=== PATIENT | female | born 1985 | race Caucasian/White ===

== ENCOUNTER 2018-02-08 23:55 | Emergency (ER) | payer MEDICARE, MEDICAID ==
[~2018-02-08] VITALS: Ht 167.6 cm; Wt 63.5 kg
--- NOTE | 2018-02-09 00:11 | NUR ---
PT BIB [place] WITH A C/[employer]. PT CAME FROM [place]. PT IS AA&O X4 BUT DOESN'T LIKE TO TALK. PT NODS TO YES AND NO QUESTIONS. PT TRIAGED AT BED #13 AND CONNECTED TO THE MONITOR/ CONTINUOUS PULSE OX. PT IS HYPOTENSIVE 90/55. PT HAS 20G IV LAC. 18G RAC IS NOT WORKING, 18G RAC IV removed. Catheter intact and site benign. Pressure and 4x4 applied to site. No bleeding noted. RESP EVEN AND UNLABORED.
[2018-02-09 00:18] LABS: BASOPHILS # (AUTO) 0.1 /CMM (0.0-0.2); BASOPHILS % (AUTO) 0.9 % (0.0-2.0); EOSINOPHILS % (AUTO) 3.6 % (0.0-6.0); HEMATOCRIT 34 % (33-45); LYMPHOCYTES # (AUTO) 2.3 /CMM (0.8-4.8); LYMPHOCYTES % (AUTO) 34.2 % (20.0-44.0); MEAN CORPUSCULAR HGB CONC 33 g/dl (31.0-36.0); MEAN CORPUSCULAR VOLUME 84 fL (82-100); MONOCYTES # (AUTO) 0.3 /CMM (0.1-1.30); MONOCYTES % (AUTO) 4.7 % (2.0-12.0); NEUTROPHILS # (AUTO) 3.7 /CMM (1.8-8.9); NEUTROPHILS % (AUTO) 56.6 % (43.0-81.0); PLATELET COUNT (AUTO) 190 /CMM (150-450); RDW COEFFICIENT OF VARIATION 15.3 (11.5-15.0); RED BLOOD CELL COUNT(AUTO) 4.03 MIL/uL (4.0-5.2); WHITE BLOOD COUNT (AUTO) 6.6 K/uL (4.3-11.0)
[2018-02-09 00:30] LABS: INR 0.98 (0.87-1.13)
[2018-02-09] MEDS ORDERED: IV NS 0.9% 1,000 ML BAG IV ONE (00:30)
[2018-02-09] MEDS ORDERED: ONDANSETRON HCL/PF 4 MG/2 ML VIAL IVP ONE (00:30)
[2018-02-09 00:34] LABS: CALCIUM, SERUM 9.4 mg/dL (8.5-10.1); CARBON DIOXIDE 26 mmol/L (21-32); CHLORIDE 102 mmol/L (98-107); CREATININE 1.4 mg/dL (0.6-1.3); GLUCOSE 132 mg/dL (74-106); POTASSIUM 3.9 mmol/L (3.5-5.1); SODIUM SERUM 138 mmol/L (136-145); UREA NITROGEN, BLOOD 20 mg/dL (7-18)
[2018-02-09] MEDS ORDERED: ONDANSETRON HCL/PF 4 MG/2 ML VIAL ONE (00:36)
[2018-02-09 00:41] LABS: TROPONIN I < 0.017 ng/mL (0.00-0.056)
[2018-02-09 00:42] LABS: ALANINE AMINOTRANSFERASE 37 U/L (12-78); ALBUMIN 3.5 g/dL (3.4-5.0); ALKALINE PHOSPHATASE 138 U/L (46-116); ASPARTATE AMINOTRANSFERASE 42 U/L (15-37); BILIRUBIN,DIRECT 0.1 mg/dL (0.0-0.2); BILIRUBIN,TOTAL 0.2 mg/dL (0.2-1.0); TOTAL PROTEIN, SERUM 7.4 g/dL (6.4-8.2)
[2018-02-09] MEDS ORDERED: MAG HYDROX/AL HYDROX/SIMETH 30 ML UDC ONE (00:48)
[2018-02-09] MEDS ORDERED: MAG HYDROX/AL HYDROX/SIMETH 30 ML UDC PO ONE (01:00)
--- NOTE | 2018-02-09 01:09 | NUR ---
PT STATED THAT HER PAIN IS BETTER. PT IS AA7O X4. PT IS SPEAKING AND VERY COOPERATIVE.
--- NOTE | 2018-02-09 01:50 | NUR ---
PT AMBULATED WITH A STEADY GAIT. PT APPEARS TIRED. MD NOTIFIED.
--- NOTE | 2018-02-09 02:10 | NUR ---
20G RAC AND 18G LAC IV's removed. Catheter intact and site benign. Pressure and 4x4 applied to site. No bleeding noted. Patient discharged to home in stable condition. Written and verbal after care instructions given. Patient verbalizes understanding of instruction. PT REC'D A [employer] VOUCHER TO GO BACK TO [facility]. VSS. PT TAKEN TO THE LOBBY VIA .
[2018-02-09 02:11] VITALS: BP 103/56
== END 2018-02-09 02:12 | disposition home or self-care (01) ==
LOC: ER 23:59
DX: R55 Syncope and collapse (principal); F41.9 Anxiety disorder, unspecified; F31.9 Bipolar disorder, unspecified
CPT/HCPCS: 36415; 71045-TC; 80048-TC; 80076-TC; 84484-TC; 84703-TC; 85025-TC; 85730-TC; J2405; J7030